=== PATIENT | male | born 1985 | race Caucasian/White ===

== ENCOUNTER 2023-03-17 20:27 | Emergency (ER) | payer OTHER ==
[~2023-03-17] VITALS: Ht 188 cm; Wt 115.7 kg
[~2023-03-17 20:27] MED LIST: Bactrim Ds Tab1 EACH PO; MULVITMIND PO
[2023-03-17 20:42] VITALS: BP 213/146
[2023-03-17] MEDS ORDERED: IBUP200 (20:53)
[2023-03-17] MEDS ORDERED: ACET325 (20:53)
== END 2023-03-17 21:21 | disposition home or self-care (01) ==
LOC: ER 20:27
DX: T63.441A Toxic effect of venom of bees, accidental (unintentional), initial encounter (principal); R60.0 Localized edema; K08.89 Other specified disorders of teeth and supporting structures; F17.200 Nicotine dependence, unspecified, uncomplicated; Y92.9 Unspecified place or not applicable
CPT/HCPCS: 99282